=== PATIENT | female | born 1990 | race Caucasian/White ===

== ENCOUNTER 2018-08-04 16:55 | Emergency (ER) | payer OTHER ==
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
--- NOTE | 2018-08-04 19:19 | XRAY Report ---
Reason: Pain Procedure Date: 08/04/2018 Accession Number: [id number] / [id number] Procedure: XR - Hand 3 View RT CPT Code: FULL RESULT: EXAM: RIGHT HAND RADIOGRAPHY EXAM DATE: 08/04/2018 06:51 PM. CLINICAL HISTORY: Right hand pain. COMPARISON: None. TECHNIQUE: 3 views. FINDINGS: Bones: Normal. No fractures or bone lesions. Joints: Normal. No subluxations. Soft Tissues: Normal. No soft tissue swelling. IMPRESSION: Normal hand radiography. [facility]
--- NOTE | 2018-08-04 19:20 | XRAY Report ---
Reason: chest pain Procedure Date: 08/04/2018 Accession Number: [id number] / [id number] Procedure: XR - Chest 1 View X-Ray CPT Code: 45929 FULL RESULT: EXAM: CHEST RADIOGRAPHY EXAM DATE: 08/04/2018 06:51 PM. CLINICAL HISTORY: Chest pain. COMPARISON: None. TECHNIQUE: 1 view. FINDINGS: Lungs/Pleura: No focal opacities evident. No pleural effusion. No pneumothorax. Mediastinum: Within exam limitations, the cardiomediastinal contour is normal. Other: None. IMPRESSION: Normal single view chest. [facility]
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
[2018-08-04 19:49] VITALS: BP 113/69
== END 2018-08-04 19:41 | disposition home or self-care (01) ==
LOC: ED 16:55
DX: S16.1XXA Strain of muscle, fascia and tendon at neck level, initial encounter (principal); M79.641 Pain in right hand; M25.562 Pain in left knee; M25.561 Pain in right knee; R07.89 Other chest pain; V43.52XA Car driver injured in collision with other type car in traffic accident, initial encounter; F17.200 Nicotine dependence, unspecified, uncomplicated
CPT/HCPCS: 71045; 72125; 73565; 99283

== ENCOUNTER 2020-02-19 14:14 | Emergency (ER) | payer OTHER ==
[2020-02-19 14:18] VITALS: BP 109/67
[2020-02-19] MEDS ORDERED: BUFFERED LIDOCAINE 10 ML SYRINGE SUBQ STA (14:21)
[2020-02-19] MEDS ORDERED: BACITRACIN ZINC OINT 1 PACKET TOP STA (14:21)
[2020-02-19] MEDS ORDERED: TETANUS/DIPHTHERIA/PERTUSSIS 0.5 ML SYRINGE IM ONE (14:21)
--- NOTE | 2020-02-19 14:38 | ED Physician Documentation ---
History of Present Illness - Stated complaint Stated Complaint: RT FINGER LAC - Chief complaint Chief Complaint: Laceration - Additonal information Additional information: 29-year-old female presents to the emergency department for a laceration on the medial side of her right middle finger that was sustained when she was reaching for her dog but cut her finger on a sharp edge of the tailgate. Patient reports some distal numbness in the middle finger but has normal flexion extension. Unknown last tetanus. Patient is right-handed Review of Systems Constitutional: reports: Reviewed and negative Nose: reports: Reviewed and negative Throat: reports: Reviewed and negative Cardiac: reports: Reviewed and negative Respiratory: reports: Reviewed and negative GI: reports: Reviewed and negative : reports: Reviewed and negative Skin: reports: Laceration (s) (right middle finger) Musculoskeletal: reports: Reviewed and negative PD PAST MEDICAL HISTORY - Past Surgical History Past Surgical History: No - Present Medications Home Medications: Ambulatory Orders Medication Instructions Recorded Confirmed No Known Home Medications 08/04/18 02/19/20 - Allergies Allergies/Adverse Reactions: Allergies Allergy/AdvReac Type Severity Reaction Status Date / Time latex Allergy Rash Verified 02/19/20 14:19 - Social History Does the pt smoke?: Yes Smoking Status: Current every day smoker Does the pt drink ETOH?: No Does the pt have substance abuse?: No - Immunizations Immunizations are current?: Yes PD ED PE NORMAL - General General: Alert and oriented X 3, No acute distress - HEENT HEENT: Atraumatic - Derm Derm: Normal color, Warm and dry, Other (1 cm V shaped laceration medial side right index finger between mcp and pip joint. Normal flexion/extension against resistance) - Extremities Extremities: No deformity, Normal ROM s pain, No edema. No: No tenderness to palpate Results - Vitals Vitals: Vital Signs - 24 hr 02/19/20 14:16 Temperature 36.7 C Heart Rate 87 Respiratory 16 Rate Blood Pressure 109/67 O2 Saturation 98 Oxygen O2 Source Room air Procedures - Laceration (location) right middle finger Length in cm: 1 Wound type: Curved, Irregular Neurovascular status: Motor intact, Vascular intact. No: Sensory intact Tendon involvement: Tendon intact Anesthesia: Lidocaine 1% Wound Preparation: Chlorhexadine, Irrigated copiously NS Skin layer closure: Nylon, Interrupted, Size #-0 - enter number (5), Sutures - enter # (3) Other: Patient tolerated well, No complications, Neurovascular intact, Dressing applied, Tetanus booster given Complexity: Simple PD MEDICAL DECISION MAKING - ED course Complexity details: considered differential, d/w patient ED course: 29-year-old female presents to the emergency department with a right middle finger laceration sustained when her hand her bed on a tailgate. Tetanus was updated today. Wound was irrigated copiously. 3 sutures placed. Advised to be removed in 7 to 10 days. Routine wound care discussed and return precautions for concerns of infection Departure - Departure Disposition: 01 Home, Self Care Clinical Impression: Finger laceration Qualifiers: Encounter type: initial encounter Finger: middle finger Damage to nail status: without damage Foreign body presence: without foreign body Laterality: right Qualified Code(s): S61.212A - Laceration without foreign body of right middle finger without damage to nail, initial encounter Condition: Stable Record reviewed to determine appropriate education?: Yes Instructions: ED Laceration All Comments: Felisa I think that your laceration will heal well. In 24 hours you may gently wash with warm soap and water, pat dry then apply any antibiotic ointment and a simple bandage. Until the wound is fully healed do not submerge your hand in dirty water such as a bathtub dishwater or garcia. Suture should be removed in 7 to 10 days. If you have any concerns of infection such as fever redness finger swelling or milky drainage then please return to the emergency department for a second look
== END 2020-02-19 14:46 | disposition home or self-care (01) ==
LOC: ED 14:14
DX: S61.212A Laceration without foreign body of right middle finger without damage to nail, initial encounter (principal); W26.8XXA Contact with other sharp object(s), not elsewhere classified, initial encounter; F17.200 Nicotine dependence, unspecified, uncomplicated; Z23 Encounter for immunization
CPT/HCPCS: 12001; 90471; 99283